=== PATIENT | female | born 1995 | race Caucasian/White ===

== ENCOUNTER 2018-03-12 22:06 | Inpatient (IN) | payer OTHER ==
[~2018-03-12] VITALS: Ht 172.7 cm; Wt 90.8 kg
[~2018-03-12 22:06] MED LIST: NITR-58 PO; PHEN-538 PO
[2018-03-12 22:16] VITALS: BMI 31.4
[2018-03-12 22:17] VITALS: BP 115/57; PULSE 70; RESP 16
[2018-03-12 22:25] VITALS: BP 115/57; PULSE 70; RESP 16; Ht 172.7 cm; Wt 90.8 kg
[2018-03-12] MEDS ORDERED: LACTATED RINGER'S 1,000 ML IV SCH (23:56)
[2018-03-13] MEDS ORDERED: BUTORPHANOL 2 MG INJ IV PRN
[2018-03-13] MEDS ORDERED: IBUPROFEN 600 MG TAB PO PRN
[2018-03-13] MEDS ORDERED: AMPICILLIN 2 GM/NS (PMX) 100 ML IV ONE
[2018-03-13] MEDS ORDERED: LIDOCAINE 1% (MPF) 30 ML INJ INJ PRN
[2018-03-13] MEDS ORDERED: OXYTOCIN 30 UNITS/LR 500 ML IV SCH ×2
[2018-03-13] MEDS ORDERED: LACTATED RINGER'S 1,000 ML IV ONE (01:00)
[2018-03-13] MEDS: MISOPROSTOL 50 MCG CAPSULE PO SCH ×6 (01:00→23:30)
[2018-03-13] MEDS ORDERED: FENTAnyl 2MCG/ML-ROPIV 0.2% 100 ML ONE (02:53)
--- NOTE | 2018-03-13 02:56 | PREAC ---
Date/Time of Note Date/Time of Note DATE: 03/13/18 TIME: 02:55 Anesthesia Eval and Record Evaluation Time Pre-Procedure Interview DATE: 03/13/18 TIME: 02:55 Age 23 Sex female NPO: 8 hrs Preoperative diagnosis IUP Planned procedure L&D Past Medical History Past Medical History: None Surgery & Anesthesia Issues No known issue Meds Anticoagulation: No Beta Wendy within 24 hr: No Reason Beta Wendy not given: Pt. not on B-Wendy Active Scripts Phenazopyridine Hcl* (Pyridium*) 200 Mg Tab, 200 MG PO TID, #6 TAB Prov:FAM MARS [employer] INS[employer]ANCE DIRECTOR 08/15/14 Nitrofurantoin Monohyd Macrocr (Macrobid) 100 Mg Capsr, 100 MG PO BID for 7 Days, CAP Prov:FAM MARS [employer] INSURANCE DIRECTOR 08/15/14 Current Medications Lactated Ringer's 1,000 ml @ 125 mls/hr Q8H IV ; Start 03/12/18 at 23:56 Ampicillin 50 ml @ 100 mls/hr Q4H IV ; Start 03/13/18 at 04:00 Butorphanol Tartrate (Stadol) 2 mg Q2H PRN IV PAIN; Start 03/13/18 at 00:00 Lidocaine (Xylocaine 1% (Mpf)) 30 ml ONCE PRN INJ EPISIOTOMY; Start 03/13/18 at 00:00 Oxytocin/Lactated Ringer's 500 ml @ 500 mls/hr ONCE POST IV ; Start 03/13/18 at 00:00 Oxytocin/Lactated Ringer's 500 ml @ 125 mls/hr POST IV ; Start 03/13/18 at 00:00 Ibuprofen (Motrin) 600 mg ONCE PRN PO PAIN LEVEL 1-5; Start 03/13/18 at 00:00 Oxytocin/Lactated Ringer's 500 ml @ 0 mls/hr ONCE PRN IV VAGINAL BLEEDING; Start 03/13/18 at 00:00 Methylergonovine Maleate (Methergine) 0.2 mg ONCE PRN IM VAGINAL BLEEDING; Start 03/13/18 at 00:00 Carboprost Tromethamine (Hemabate) 250 mcg ONCE PRN IM VAGINAL BLEEDING; Start 03/13/18 at 00:00 Misoprostol (Cytotec) 1,000 mcg ONCE PRN MS VAGINAL BLEEDING; Start 03/13/18 at 00:00 Misoprostol (Cytotec 50 Mcg Capsule) 50 mcg Q4 PO ; Start 03/13/18 at 01:00 Meds reviewed: Yes Allergies Uncoded Allergies: PEANUTS (Allergy, Severe, SWELLING IN LIPS , 01/08/14) Allergies Reviewed: Yes Labs/Studies Labs Reviewed: Reviewed by anesthesiologist Result Diagram: 03/13/18 0105 Laboratory Tests 03/13/18 01:05 Blood Bank Test 03/13/18 01:06 Antibody Screen NEGATIVE Blood Type O POSITIVE Rh Immune Globulin Candidate NO test: Positive Studies: ECG Pre-procedure Exam Last vitals Vital Signs Date Temp Pulse Resp B/P (MAP) Pulse Ox O2 O2 Flow FiO2 Time Delivery Rate 03/12/18 97.8 70 16 115/57 Room Air 22:25 (76) Airway: Adequate mouth opening, Adequate thyromental dist Mallampati: Mallampati II Teeth: Normal Lung: Normal Heart: Normal ASA Physical Status ASA physical status: 2 Emergency: None Planned Anesthetic Neuraxial: Epidural Planned Pain Management Epidural Pre-operative Attestations Prior to commencing anesthesia and surgery, the patient was re-evaluated, there was verification of: *The patient's identity *The results of appropriate recent lab work and preoperative vital signs *The above evaluation not changing prior to induction *Anesthetic plan, risk benefits, alternative and complications discussed with patient/family; questions answered; patient/family understands, accepts and w ishes to proceed. HAILEE BRICENO MD Mar 13, 2018 02:56
[2018-03-13] MEDS ORDERED: DIPHENHYDRAMINE 50 MG INJ IV PRN ×2 (03:00→08:30)
[2018-03-13] MEDS ORDERED: ONDANSETRON 4 MG INJ IV PRN ×2 (03:00→08:30)
[2018-03-13] MEDS ORDERED: FENTAnyl 2MCG/ML-ROPIV 0.2% 100 ML BAG EPI SCH (03:00)
[2018-03-13] MEDS ORDERED: NALOXONE (0.4 MG/ML) INJ IV PRN (03:00)
[2018-03-13] MEDS ORDERED: AMPICILLIN 1 GM/NS (PMX) 50 ML IV SCH (04:00)
--- NOTE | 2018-03-13 07:04 | HP ---
Date/Time of Note Date/Time of Note DATE: 03/13/18 TIME: 06:56 OB - History Hx of Present Free Text/Dictation Late entry note. Patient admitted on 03/12/2018 at 2300 30-year-old 3 para 2001 with single intrauterine at 38 weeks and 6 days with a GRACY of 03/20/2017 complaining of uterine contractions. She states good movement. She denies nausea, vomiting, shortness of breath, chest pain, headache, visual changes, vaginal bleeding or LOF. Chief Complaint: Try contractions Estimated Due Date: Mar 20, 2017 : 3 Para: 2 Spontaneous : 0 Therapeutic : 0 Care: Good Care Ultrasounds: Normal mid trimester US Obstetrical Complications: None Medical Complications: None Past Family/Social History * Past Medical, Surgical, Family and Obstetric Histories reviewed from chart. Blood Type: O+ HBsAG: Negative OB Admission Exam Vital Signs Vital Signs Vital Signs Date Temp Pulse Resp B/P (MAP) Pulse Ox O2 O2 Flow FiO2 Time Delivery Rate 03/12/18 97.8 70 16 115/57 Room Air 22:25 (76) Physical Exam HEENT: WNL Heart: Rhythm Normal Lungs: Clear Abdomen: WNL Extremities: Normal Cervical Dilatation: Fingertip Effacement: 25% Station: -3 Membranes: Intact Heart Rate: 130's Accelerations: Accelerations Present Decelerations: No Decelerations Varibility: Moderate Contractions on Admission: 6-10 Minutes Apart Intensity: Mild Last 72 hourBlood Glucose FINDINGS: There is a single living intrauterine gestation with the fetus in a vertex position. The placenta is anterior in location, grade II. heart tones of 126 beats per minute are identified. There is low amniotic fluid volume with an DONNA of 4.2 cm. breathing movements = 2 Gross body movements = 2 tone = 2 Qualitative AFV = 0 IMPRESSION: Biophysical profile 6 out of 8. Oligohydramnios with an DONNA of 4.2 cm. Last 72 hours Lab Results CBC & BMP 03/13/18 01:05 OB Assessment/Plan Other plan: 23 years old 3 para 2001 at 38 weeks and 6 days with oligohydramnios admitted for induction of labor - FHR: No sign of metabolic acidosis- Category I - Continuous EFM, toco - CBC, blood type and screen - Cytotec for induction of labor - Analgesia options with R/B/A discussed in detail with patient - Epidural per patient request - Please see the orders - Blood type: O+ - GBS: Unknown, ampicillin ordered - Obtain record Admission, procedures, expectations, risks and possible complications have been discussed in detail with the patient. Risk of vaginal delivery including but not limited to bleeding, infection, cervical laceration, placental retention, injury to fetus, blood transfusion, blood transfusion related infection, risk of anesthesia, adhesion, cervical laceration, episiotomy/laceration, possible delivery with risk of bleeding, infection, injury to other organs ( bowel, bladder, ureter, vessels, nerves), injury to fetus, blood transfusion, blood transfusion related infection, risk of anesthesia, scar and hernia formation, needs for future , removal of uterus or any other indicated surgery discussed with the patient. She expressed understanding and repeats the risks. All of her questions were answered. She signed the informed consent. PHYSICIAN'S VERIFICATION OF INFORMED CONSENT The patient was counseled regarding the procedure, its indications, risks, potential complications and alternatives and any questions were answered. Consent was obtained. PLANNED PROCEDURE/TREATMENT: Vaginal delivery, episiotomy, repair of laceration possible delivery RANJAN MORRIS Mar 13, 2018 07:04
[2018-03-13] MEDS ORDERED: DEXTROSE 5%-LR 1,000 ML IV SCH (08:06)
--- NOTE | 2018-03-13 08:06 | LDN ---
Date/Time of Note Date/Time of Note DATE: 03/13/18 TIME: 08:01 Delivery Summary 30-year-old 3 para 2001 with single intrauterine at 39 weeks delivered a viable male over intact perineum. Cord clamped and cut. Baby given to the nurse. Placenta delivered spontaneously and intact with three-vessel cord. Patient tolerated procedure well. Amniotic fluid: thick meconium Time of delivery 07:22 Weight 7 pounds 5 ounces - 3280 g 9 at 1 minute and 9 at 5 minutes EBL 200 mL Weeks of Gestation 39 weeks Placenta Delivered: Spontaneously Meconium: Thick Episiotomy: No Estimated blood loss: 200 Sponge & Needle done & correct: Yes All needle counts correct: Yes Any foreign bodies felt in the: No Infant Delivery Information Sex Sex: male Apgars 1 Minute: 9 5 Minute: 9 10 Minute: 10 Umbilical Cord Umbilical cord with: 3 Vessels Cord presentations: no nuchal cord Cord Blood was obtained: Yes Mother & Baby Disposition Disposition Mom & Baby to Maternity; Good: Yes RANJAN MORRIS Mar 13, 2018 08:06
[2018-03-13] MEDS ORDERED: ZOLPIDEM 5 MG TAB PO PRN (08:30)
[2018-03-13] MEDS ORDERED: ACETAMINOPHEN 325 MG TAB PO PRN (08:30)
[2018-03-13] MEDS ORDERED: LANOLIN HPA 1 PKT TOP PRN (08:30)
[2018-03-13] MEDS ORDERED: MISOPROSTOL 200 MCG TAB PR PRN ×2 (08:30)
[2018-03-13] MEDS ORDERED: CARBOPROST 250 MCG INJ IM PRN ×2 (08:30)
[2018-03-13] MEDS ORDERED: DIBUCAINE 1% 30 GM OINT TOP PRN (08:30)
[2018-03-13] MEDS ORDERED: MAGNESIUM HYDROXIDE 30ML CUP PO PRN (08:30)
[2018-03-13] MEDS ORDERED: SENNA/DOCUSATE NA (8.6MG/50MG) TAB PO PRN (08:30)
[2018-03-13] MEDS ORDERED: METHYLERGONOVINE 0.2 MG INJ IM PRN ×2 (08:30)
[2018-03-13] MEDS ORDERED: BENZOCAINE 20% 56 ML SPRAY TOP PRN (08:30)
[2018-03-13] MEDS ORDERED: OXYCODONE/ASPIRIN (4.88/325) TAB PO PRN (08:30)
[2018-03-13] MEDS ORDERED: OXYTOCIN 30 UNITS/LR 500 ML IV PRN ×2 (08:30)
[2018-03-13 09:20] VITALS: BP 109/66; PULSE 82; RESP 18
[2018-03-13] MEDS: WITCH HAZEL/GLYCERIN PAD PR PRN (10:51)
[2018-03-13] MEDS: LACTATED RINGER'S 1,000 ML IV* SCH ×2 (10:52→16:06)
[2018-03-13] MEDS: IBUPROFEN 600 MG TAB PO SCH ×2 (12:41→18:39)
[2018-03-13 16:00] VITALS: BP 104/56; PULSE 93; RESP 18
--- NOTE | 2018-03-13 18:58 | NUR ---
EOSS:PT IS DOING WELL, AMBULATING VOIDING, ASSISTED WITH BREAST FEEDING. COLOSTRUM EXPRESSED. NO DISTRESS NOTED. Addendum: 03/13/18 at 1858 by LILLIE ALCOCER RN Amended: Links added.
[2018-03-13 20:00] VITALS: BP 112/64; PULSE 81; RESP 18
[2018-03-14] MEDS: LACTATED RINGER'S 1,000 ML IV* SCH ×3 (00:06→16:06)
[2018-03-14] MEDS: IBUPROFEN 600 MG TAB PO SCH ×4 (00:19→17:59)
[2018-03-14] MEDS: MISOPROSTOL 50 MCG CAPSULE PO SCH ×4 (01:35→13:00)
[2018-03-14 04:00] VITALS: BP 110/62; PULSE 72; RESP 18
--- NOTE | 2018-03-14 05:42 | NUR ---
EOSS: PATIENT IN STABLE CONDITION. AND BONDING WITH INFANT. FUNDUS FIRM WITH SMALL AMOUNT OF LOCHIA. PASSING RIMA AND VOIDING. DUE TO BM. AMBULATING. AFEBRILE.
[2018-03-14 08:00] VITALS: BP 112/70; PULSE 73; RESP 18
[2018-03-14] MEDS: WITCH HAZEL/GLYCERIN PAD PR PRN (11:59)
--- NOTE | 2018-03-14 15:40 | QN ---
Documentation Comment PPD# 1 is stable No VB +BM +voids VS stable Gen NAD Abd soft NT ND Genitalia No blood at perineum --->Ambulation --->Discharge plan tomorrow LEILANI KAUFMAN M.D. Mar 14, 2018 15:40
[2018-03-14 16:30] VITALS: BP 108/55; PULSE 89; RESP 18
--- NOTE | 2018-03-14 18:38 | NUR ---
EOSS: PT DOING WELL, CBC WNL, SEEN BY HOSPITALIST. ASSISTED WITH BREAST FEEDING , AND SNS. DISCUSSED, DEMONSTRATED BREAST MASSAGE AND HAND EXPRESSION. Addendum: 03/14/18 at 1839 by LILLIE ALCOCER RN Amended: Links added.
[2018-03-14 20:00] VITALS: BP 104/56; PULSE 69; RESP 19
[2018-03-15] MEDS: LACTATED RINGER'S 1,000 ML IV* SCH (00:06)
[2018-03-15] MEDS: IBUPROFEN 600 MG TAB PO SCH ×3 (00:12→12:10)
[2018-03-15 04:00] VITALS: BP 102/60; PULSE 62; RESP 6
--- NOTE | 2018-03-15 05:21 | NUR ---
EOSS: PATIENT IN STABLE CONDITION. BONDING WELL WITH . FEEDING FORMULA VIA BOTTLE, AND OCCASIONAL . FUNDUS FIRM, SCANT LOCHIA. AMBULATING AND VOIDING. DUE TO BM, PASSING GAS. AFEBRILE.
[2018-03-15 08:10] VITALS: BP 106/62; PULSE 80; RESP 20
[2018-03-15] MEDS ORDERED: MEASLES,MUMPS,RUBELLA VACCINE INJ SC* ONE (09:00)
[2018-03-15] MEDS ORDERED: DIPHTH/TET/ACEL PERTUSS (ADULT) 0.5 ML VIAL IM* ONE (09:00)
--- NOTE | 2018-03-15 11:46 | QN ---
Documentation Comment PPD#2 is stable No VB +BM +voids VS stable Gen NAD Abd soft NT ND Genitalia No blood at perineum --->Ambulation --->Discharge plan LEILANI KAUFMAN M.D. Mar 15, 2018 11:46
--- NOTE | 2018-03-15 11:47 | DS ---
Date/Time of Note Date/Time of Note DATE: 03/15/18 TIME: 11:46 Discharge Summary Admission/Discharge Info Admit Date/Time Mar 12, 2018 at 23:57 Discharge Date/Time Feb Discharge Diagnosis Patient Condition: Good Hospital Course uneventful Home Meds Active Scripts Phenazopyridine Hcl* (Pyridium*) 200 Mg Tab, 200 MG PO TID, #6 TAB Prov:FAM MARS NP 08/15/14 Nitrofurantoin Monohyd Macrocr (Macrobid) 100 Mg Capsr, 100 MG PO BID for 7 Days, CAP Prov:FAM MARS NP 08/15/14 Primary Care Provider Not On Staff Doctor LEILANI KAUFMAN M.D. Mar 15, 2018 11:47
--- NOTE | 2018-03-15 13:50 | NUR ---
DISCHARGED IN STABLE CONDITION WITH BABY.
== END 2018-03-15 13:50 | disposition home or self-care (01) | DRG 807 ==
LOC: OBT 22:06 → L-D 22:07 → OBT 23:57 → L-D 23:57 → PP1 03-13 09:10
PROVIDERS: ADMIT Obstetrics & Gynecology; ATTEND Obstetrics & Gynecology
PROC: 10E0XZZ Delivery of Products of Conception, External Approach (ICD-10-PCS; principal; 2018-03-13)
DX: O41.03X0 Oligohydramnios, third trimester, not applicable or unspecified (principal); O77.0 Labor and delivery complicated by meconium in amniotic fluid; Z37.0 Single live birth; Z3A.39 39 weeks gestation of pregnancy; Z3A.38 38 weeks gestation of pregnancy
CPT/HCPCS: 76818; 85025; 85610; 85730; 86592; 86850; 86900; 86901; 87340; G0463; J0290; J2590; J3010; J7120; J7121